=== PATIENT | male | born 1965 | race Caucasian/White ===

== ENCOUNTER 2020-10-14 12:00 | Emergency (ER) | payer OTHER ==
[~2020-10-14] VITALS: Ht 182.9 cm; Wt 79.8 kg
[2020-10-14 12:25] LABS: HEMOGLOBIN 15.2 gm/dl (14.0-17.5); RED BLOOD COUNT 5.29 M/UL (4.20-5.50); WHITE BLOOD COUNT 5.5 K/UL (4.5-11.0)
[2020-10-14 12:53] LABS: BUN/CREATININE RATIO 19 (0-10)
[2020-10-15 01:33] LABS: HEMOGLOBIN 14.5 gm/dl (14.0-17.5); RED BLOOD COUNT 4.92 M/UL (4.20-5.50); WHITE BLOOD COUNT 5.3 K/UL (4.5-11.0)
[2020-10-15 02:29] LABS: BUN/CREATININE RATIO 19 (0-10)
[2020-10-15] MEDS ORDERED: NAPROXEN500 MG PO (10:36)
[2020-10-15] MEDS ORDERED: GLUCOTROL 10 MG10 MG PO (10:37)
[2020-10-15] MEDS ORDERED: ZESTRIL5 MG PO (10:37)
[2020-10-15] MEDS ORDERED: PRAVASTATIN SOD20 MG PO (10:38)
[2020-10-15] MEDS ORDERED: METFORMIN HCL1000 MG PO (10:38)
[2020-10-15] MEDS ORDERED: ACTOS TAB 15MG15 MG PO (10:38)
[2020-10-15] MEDS ORDERED: VITAMIN D325 MCG PO (14:14)
[2020-10-15] MEDS ORDERED: FIBER625 MG PO (14:16)
[2020-10-15] MEDS ORDERED: VITAMIN B-121000 MCG PO (14:16)
[2020-10-15] MEDS ORDERED: GARLIC1000 MG PO (14:17)
[2020-10-15] MEDS ORDERED: MULTIVITAMIN1 EACH PO (14:17)
[2020-10-15] MEDS ORDERED: ASPIRIN EC81 MG PO (14:17)
[2020-10-15] MEDS ORDERED: OMEPRAZOLE20 MG PO (14:17)
== END 2020-10-15 16:00 | disposition home or self-care (01) ==
LOC: ER1 12:00 → CDU 16:42 → ER1 16:42
PROVIDERS: Physician Assistant Medical
DX: R55 Syncope and collapse (principal); R07.9 Chest pain, unspecified; Z20.822 Contact with and (suspected) exposure to COVID-19
CPT/HCPCS: ECHO; 70450; 71045; 78452; 80048; 80053; 80061; 82550; 82553; 82962; 83036; 83735; 83874; 84484; 85025; 85027; 93005; 93017; 93270; 93306; 99285; A9502; J2785; U0002

== ENCOUNTER → 2020-12-01 | Outpatient (CLI) | payer SELFPAY ==
[~2020-12-01] MED LIST: ACTOS TAB 15MG15 MG PO; ASPIRIN EC81 MG PO; FIBER625 MG PO; GARLIC1000 MG PO; GLUCOTROL 10 MG10 MG PO; METFORMIN HCL1000 MG PO; MULTIVITAMIN1 EACH PO; NAPROXEN500 MG PO; OMEPRAZOLE20 MG PO; PRAVASTATIN SOD20 MG PO; VITAMIN B-121000 MCG PO; VITAMIN D325 MCG PO; ZESTRIL5 MG PO
== END ==
LOC: CATH 10:00
DX: R55 Syncope and collapse (principal)